=== PATIENT | male | born 1980 | race Asian ===

== ENCOUNTER 2018-12-24 19:46 | Emergency (ER) | payer MEDICAID ==
[~2018-12-24] VITALS: Ht 172.7 cm; Wt 78.5 kg
--- NOTE | 2018-12-24 19:56 | NUR ---
ED Nurse Note: Walk-in patient presents with complaints of left knee injury from wake boarding this morning around 0900. Patient reports condition of knee as the same as this morning. He has no pain with flexion or extension of the left leg but does experience pain with lateral movement. Patient is resting comfortably with no s/s of acute distress. Will continue to monitor. Ice packs provided by triage nurse.
[2018-12-24] MEDS ORDERED: Ketorolac 30mg Inj IM ONE (20:15)
--- NOTE | 2018-12-24 20:19 | Emergency Room Report ---
History of Present Illness General Chief Complaint: Lower Extremity Injury Source: Patient Present Illness HPI 38 YO Male presents to the ED c/o 12/10 in severity acute onset of left medial knee pain while wakeboarding this morning. Patient reports he is able to bear some weight however he states that extension of his leg exacerbates his pain. Patient denies dislocation. He denies previous injury to this extremity. Denies numbness tingling or loss of sensation or gross motor movements of the extremities, incontinence of bowel or bladder. Denies CP, palpitations, LOC, AMS , dizziness, changes in vision, weakness or a sudden severe headache. Allergies: Coded Allergies: No Known Allergies (Unverified , 12/24/18) Patient History Past Medical History: see triage record Past Surgical History: none Pertinent Family History: none Reviewed Nursing Documentation: PMH: Agreed; PSxH: Agreed Nursing Documentation-PMH Past Medical History: No History, Except For Hx Asthma: Yes - Asthma Review of Systems All Other Systems: negative except mentioned in HPI Physical Exam Vital Signs Date Time Temp Pulse Resp B/P (MAP) Pulse Ox O2 Delivery O2 Flow Rate FiO2 12/24/18 19:50 98.4 88 18 143/80 (101) 94 Room Air Sp02 EP Interpretation: reviewed, normal General Appearance: no apparent distress, alert, GCS 15, non-toxic Head: normocephalic, atraumatic Eyes: bilateral eye normal inspection, bilateral eye PERRL ENT: hearing grossly normal, normal voice Neck: full range of motion Respiratory: lungs clear, normal breath sounds, speaking full sentences Cardiovascular #1: regular rate, rhythm Cardiovascular #2: 2+ dorsalis pedis (L) - post. tibial Musculoskeletal: back normal, gait/station normal - mild compensation- favoring left leg, normal range of motion, tender - Left knee: No increased laxity upon varus or valgus stressing, negative anterior and posterior drawer signs. TTP to the medial aspect of the left knee Neurologic: alert, oriented x3, responsive, motor strength/tone normal, sensory intact, speech normal, grossly normal Psychiatric: judgement/insight normal Lymphatic: no adenopathy Medical Decision Making PA Attestation Dr. Castellanos is my supervising Physician whom patient management has been discussed with. Diagnostic Impression: Primary Impression: Knee MCL sprain Qualified Codes: S83.412A - Sprain of medial collateral ligament of left knee , initial encounter Additional Impression: Left knee sprain Qualified Codes: S83.412A - Sprain of medial collateral ligament of left knee , initial encounter ER Course 38 YO Male presents to the ED c/o 12/10 in severity acute onset of left medial knee pain while wakeboarding this morning. Patient reports he is able to bear some weight however he states that extension of his leg exacerbates his pain. Patient denies dislocation. He denies previous injury to this extremity. Denies numbness tingling or loss of sensation or gross motor movements of the extremities, incontinence of bowel or bladder. Denies CP, palpitations, LOC, AMS , dizziness, changes in vision, weakness or a sudden severe headache. Ddx considered but are not limited to Fracture, dislocation, contusion, Sprain/ Strain/Spasm, Ligamental tear, meniscal injury just to name a few. Vital signs: are WNL, pt. is afebrile H&PE are most consistent with musculoskeletal injury will perform imaging to r/ o fractures/dislocations. ORDERS: - X-ray Left knee 3 views - negative for fx, Dislocation, or significant soft tissue injury, per preliminary read in ED, and signed by MCKENZIE Zurita , my supervising physician has reviewed, and agrees with my interpretation. ED INTERVENTIONS: - Toradol IM --Knee Immobilizer splint applied to the left knee by cv tech. Pt. remains neurovascularly intact. --Patient is provided with crutches and instructed on their use DISCHARGE: At this time pt. is stable for d/c to home. Will provide printed patient care instructions, and any necessary prescriptions. Care plan and follow up instructions have been discussed with the patient prior to discharge. Other X-Ray Diagnostic Results Other X-Ray Diagnostic Results : X-Ray ordered: Left Knee # of Views/Limited Vs Complete: 3 View Indication: Pain EP Interpretation: Yes MCKENZIE Xray: Interpretation reviewed, by supervising MD, and agrees with findings. Interpretation: no dislocation, no soft tissue swelling, no fractures Impression: No acute disease Electronically Signed by: Marisol Zurita PA-C Last Vital Signs Date Time Temp Pulse Resp B/P (MAP) Pulse Ox O2 Delivery O2 Flow Rate FiO2 12/24/18 19:50 98.4 88 18 143/80 (101) 94 Room Air Disposition: HOME, SELF-CARE Condition: Stable Referrals: NON PHYSICIAN (PCP) Patient Instructions: Knee Sprain Additional Instructions: Take medications as directed. Follow up with your PCP in 3-5 days, even if your symptoms have resolved. * * If symptoms persist, Orthopedic Evaluation and MRI may be required at the discretion of your PCP or Ortho Specialist. --Please review list of primary care clinics, if you do not already have a primary care provider who can give you an Orthopedic Referral. Return sooner to ED if new symptoms occur, or current symptoms become worse. - Please note that this Emergency Department Report was dictated using [employer] technology software, occasionally this can lead to erroneous entry secondary to interpretation by the dictation equipment. Marisol Zurita Dec 24, 2018 20:19
--- NOTE | 2018-12-24 20:32 | Diagnostic Imaging Report ---
EXAM: XR Left Knee, 3 views CLINICAL HISTORY: PAIN TECHNIQUE: Three views of the left knee. COMPARISON: No relevant prior studies available. FINDINGS: Bones/joints: No acute fracture. No dislocation. Soft tissues: Unremarkable. IMPRESSION: No acute osseous findings.
[2018-12-24] MEDS ORDERED: NAPROXEN500 M1 ORAL (20:37)
--- NOTE | 2018-12-24 20:50 | NUR ---
ED Nurse Note: Patient cleared for discharge, ambulatory with crutches and a knee immobilizer. Patient verbalized understanding of discharge instructions. Patient waiting in lobby for images of knee from radiology. Patient departed from unit with all belongings and plans to drive home.
[2018-12-24 20:51] VITALS: BP 143/80
== END 2018-12-24 20:52 | disposition home or self-care (01) ==
LOC: EMR 20:04
DX: S83.412A Sprain of medial collateral ligament of left knee, initial encounter (principal); J45.909 Unspecified asthma, uncomplicated; X58.XXXA Exposure to other specified factors, initial encounter; Y93.17 Activity, water skiing and wake boarding; Y92.89 Other specified places as the place of occurrence of the external cause
CPT/HCPCS: 29505; 73562; 96372; 99283; J1885